=== PATIENT | female | born 1985 | race Two or more races ===

== ENCOUNTER 2022-12-22 14:00 | Emergency (ER) | payer OTHER ==
[~2022-12-22] VITALS: Ht 160 cm; Wt 61.7 kg
[2022-12-22] MEDS ORDERED: PRENATAL (14:43)
[2022-12-22 16:41] LABS: HEMATOCRIT 36.2 % (36.0-45.00); HEMOGLOBIN 12.2 g/dL (12.0-15.00); MEAN CELL VOLUME 95.6 fL (80.00-100.00); MEAN CORPUSCULAR HEMOGLOBIN 32.3 pg (27.00-32.0); MEAN CORPUSCULAR HGB CONC 33.7 g/dl (32.0-36.0); PLATELET COUNT 201 K/uL (150-450); RED BLOOD COUNT 3.79 M/uL (4.00-6.00); RED CELL DISTRIBUTION WIDTH 13.5 % (11.5-14.5)
[2022-12-22 17:05] LABS: CALCIUM 8.5 mg/dL (8.5-10.1); CREATININE SERUM 0.53 mg/dL (0.55-1.02); GFR 131.27; POTASSIUM 3.46 mEq/L (3.5-5.1)
[2022-12-22 17:47] LABS: URINE APPEARANCE Clear; URINE BILIRRUBIN Negative (NEGATIVE); URINE BLOOD Negative; URINE COLOR Yellow; URINE GLUCOSE Negative (NEGATIVE); URINE LEUKOCYTE Negative; URINE NITRATE Negative; URINE PROTEIN Negative (NEGATIVE)
[2022-12-22 17:51] LABS: URINE BACTERIA 3187.5 uL (0.0-1933); URINE EPITHELIAL CELLS 59.6 uL (0.0-38.8); URINE WBC 22.5 uL (0.0-23.2)
[2022-12-22 17:52] LABS: URINE RBC 1.1 uL (0.0-20.8)
[2022-12-22] MEDS ORDERED: DUI500 PO (18:11)
== END 2022-12-22 18:14 | disposition home or self-care (01) ==
LOC: ER 14:00
PROVIDERS: General Practice
DX: O23.32 Infections of other parts of urinary tract in pregnancy, second trimester (principal); Z3A.17 17 weeks gestation of pregnancy; N39.0 Urinary tract infection, site not specified
CPT/HCPCS: 36415; 76805; 76819; 96365; 96366; 99284; J7042

== ENCOUNTER 2023-04-17 11:02 | Outpatient (CLI) | payer OTHER ==
[~2023-04-17 11:02] MED LIST: DUI500 PO; PRENATAL
== END 2023-04-17 12:59 | disposition home or self-care (01) ==
LOC: NST 11:02
PROVIDERS: ATTEND Obstetrics & Gynecology
DX: Z34.83 Encounter for supervision of other normal pregnancy, third trimester (principal)

== ENCOUNTER 2023-05-08 12:21 | Inpatient (IN) | payer OTHER ==
[~2023-05-08] VITALS: Ht 160 cm; Wt 3.2 kg
[2023-05-08 13:44] LABS: HEMATOCRIT 34.4 % (36.0-45.00); HEMOGLOBIN 11.4 g/dL (12.0-15.00); MEAN CELL VOLUME 91.1 fL (80.00-100.00); MEAN CORPUSCULAR HEMOGLOBIN 30.3 pg (27.00-32.0); MEAN CORPUSCULAR HGB CONC 33.3 g/dl (32.0-36.0); PLATELET COUNT 186 K/uL (150-450); RED BLOOD COUNT 3.78 M/uL (4.00-6.00); RED CELL DISTRIBUTION WIDTH 15.2 % (11.5-14.5)
[2023-05-08 14:18] LABS: INR 0.94; PARTIAL THROMBOPLASTIN TIME 28.6 SECONDS (22.0-34.0); PROTHROMBIN TIME 9.9 SECONDS (9.0-11.5)
[2023-05-08 14:25] LABS: ALBUMIN 2.9 gm/dL (3.4-5.0); BILIRUBIN TOTAL 0.34 mg/dL (0.3-1.2); CALCIUM 9.2 mg/dL (8.5-10.1); CREATININE SERUM 0.47 mg/dL (0.55-1.02); GFR 150.79; GLOBULINA 3.6 G/DL (2.4-3.5); POTASSIUM 3.92 mEq/L (3.5-5.1); TOTAL PROTEIN 6.5 gm/dL (6.4-8.2)
[2023-05-20] MEDS ORDERED: IRON325 MG PO (07:10)
[2023-05-20] MEDS ORDERED: OBSTETRIX ONE1 EAC1 (10:17)
[2023-05-20] MEDS ORDERED: INTEGRA PLUS C1 EACH (10:20)
[2023-05-20] MEDS ORDERED: MORPHINE SULFATE 4 MG/ML CARTRIDGE IV SCH (10:32)
[2023-05-20] MEDS ORDERED: PNV,CALCIUM 72/IRON/FOLIC ACID 1 TAB TABLET PO SCH (10:32)
[2023-05-20] MEDS ORDERED: ERYTHROMYCIN BASE 3.5 GM OINT...G. OP ONE (11:06)
[2023-05-20] MEDS ORDERED: OXYTOCIN 10 UNITS/ML VIAL ONE (11:06)
[2023-05-20] MEDS ORDERED: CITRIC ACID/SODIUM CITRATE 30 ML BLIST.PACK PO ONE (11:06)
[2023-05-20] MEDS ORDERED: CEFAZOLIN SODIUM 1,000 MG VIAL ONE (11:06)
[2023-05-20] MEDS ORDERED: KETOROLAC TROMETHAMINE 30 MG VIAL IV SCH (12:00)
[2023-05-20] MEDS ORDERED: ACETAMINOPHEN 500 MG GEL..CAP PO SCH (18:00)
[2023-05-20] MEDS ORDERED: DOCUSATE SODIUM 100MG CAP PO SCH (21:00)
[2023-05-21] MEDS ORDERED: GABAPENTIN 300 MG CAPSULE PO SCH (01:00)
[2023-05-21 07:08] LABS: HEMATOCRIT 32.5 % (36.0-45.00); HEMOGLOBIN 11.2 g/dL (12.0-15.00); MEAN CORPUSCULAR HEMOGLOBIN 31.1 pg (27.00-32.0); MEAN CORPUSCULAR HGB CONC 34.6 g/dl (32.0-36.0); PLATELET COUNT 142 K/uL (150-450); RED BLOOD COUNT 3.61 M/uL (4.00-6.00); RED CELL DISTRIBUTION WIDTH 16.9 % (11.5-14.5)
[2023-05-21] MEDS ORDERED: SIMETHICONE 125 MG CAPSULE PO SCH (09:00)
[2023-05-21] MEDS ORDERED: IBUprofen 600 MG TABLET PO SCH (12:00)
[2023-05-21] MEDS ORDERED: ERYTHROMYCIN BASE 1 GM TUBE OP ONE (15:00)
[2023-05-21] MEDS ORDERED: CEFAZOLIN SODIUM 1,000 MG VIAL IV SCH (15:00)
[2023-05-21] MEDS ORDERED: CITRIC ACID/SODIUM CITRATE 30 ML BLIST.PACK PO SCH (15:00)
[2023-05-21] MEDS ORDERED: OXYTOCIN 10 UNIT/ML (10ML) IV ONE (15:00)
== END 2023-05-22 15:58 | disposition home or self-care (01) | DRG 785 ==
LOC: O/R 05-20 06:45 → OB/GYN 05-20 06:45
PROVIDERS: Obstetrics & Gynecology Gynecology; ADMIT Obstetrics & Gynecology; ATTEND Obstetrics & Gynecology
PROC: 0UB70ZZ Excision of Bilateral Fallopian Tubes, Open Approach (ICD-10-PCS; 2023-05-20)
PROC: 4A1HXCZ Monitoring of Products of Conception, Cardiac Rate, External Approach (ICD-10-PCS; 2023-05-20)
PROC: 10D00Z1 Extraction of Products of Conception, Low, Open Approach (ICD-10-PCS; principal; 2023-05-20 11:15)
DX: O34.211 Maternal care for low transverse scar from previous cesarean delivery (principal); Z3A.38 38 weeks gestation of pregnancy; Z30.2 Encounter for sterilization; Z20.822 Contact with and (suspected) exposure to COVID-19; Z37.0 Single live birth